=== PATIENT | male | born 1945 | race Caucasian/White ===

== ENCOUNTER 2020-03-18 10:59 | Observation (INO) | payer OTHER ==
[~2020-03-18] VITALS: Ht 182.9 cm; Wt 57.3 kg
[~2020-03-18 10:59] MED LIST: AMLO-150 PO; INSU100I7 SQ; LISI-170 PO; LOVA-39 PO; METF100010 PO; [UNRECOGNIZED DRUG - REMARK]
[2020-03-18] MEDS ORDERED: INSU100V8 SQ (11:50)
[2020-03-18] MEDS ORDERED: SODIUM CHLORIDE 0.9% 1,000ML IVBOLUS ONE (12:30)
[2020-03-18 12:40] LABS: BASOPHILS % (AUTO) 1 % (0-1); EOSINOPHILS % (AUTO) 0 % (1-7); LYMPHOCYTES % (AUTO) 11 % (22-44); MEAN CORPUSCULAR HEMOGLOBIN 31.9 pg (27.5-34.5); MEAN CORPUSCULAR HGB CONC 33.4 g/dL (33.2-36.2); MEAN PLATELET VOLUME 8.7 fL (7.4-10.4); MONOCYTES % (AUTO) 6 % (2-9); NEUTROPHILS % (AUTO) 83 % (42-75); PLATELET COUNT 268 x10^3/uL (130-400); RED BLOOD COUNT 4.53 x10^6/uL (4.38-5.82); RED CELL DISTRIBUTION WIDTH 13.7 % (9.4-14.8)
[2020-03-18 12:42] LABS: MD NO
[2020-03-18 12:45] LABS: ALANINE AMINOTRANSFERASE 21 U/L (12-78); ALBUMIN 3.1 g/dL (3.4-5.0); ANION GAP 9 mmol/L (5-15); CALCIUM 8.7 mg/dL (8.5-10.1); CHLORIDE 99 mmol/L (98-107); CREATININE 0.81 mg/dL (0.7-1.3)
[2020-03-18 12:47] LABS: ALKALINE PHOSPHATASE 125 U/L (45-117); BILIRUBIN,TOTAL 0.7 mg/dL (0.2-1.0); TOTAL PROTEIN 6.5 g/dL (6.4-8.2)
--- NOTE | 2020-03-18 13:11 | NUR ---
PT UNABLE TO LEAVE STOOL SAMPLE AT THIS TIME, DENIES NEED TO HAVE BM SINCE ARRIVING TO ED.
[2020-03-18] MEDS ORDERED: ENALAPRILAT 1.25 MG/ML, 2ML IVPush PRN (15:00)
[2020-03-18] MEDS ORDERED: GLUCAGON 1 MG IM PRN (15:00)
[2020-03-18] MEDS ORDERED: ACETAMINOPHEN 325 MG TABLET PO PRN (15:00)
[2020-03-18] MEDS ORDERED: MELATONIN 5 MG TABLET PO PRN (15:00)
[2020-03-18] MEDS: LACTATED RINGERS 1,000 ML IV SCH (15:00)
[2020-03-18] MEDS ORDERED: DEXTROSE 50%, 50ML SYRINGE IVPush PRN (15:00)
[2020-03-18] MEDS ORDERED: POLYETHYLENE GLYCOL 17 GM PACKET PO PRN (15:00)
[2020-03-18] MEDS ORDERED: IBUPROFEN 600 MG TABLET PO PRN (15:00)
[2020-03-18] MEDS ORDERED: DEXTROSE 4 GM TAB.CHEW PO PRN (15:00)
--- NOTE | 2020-03-18 15:17 | NUR ---
SON PEACE PAGE [phone]. FAMILY FRIEND CONTACT FOR GENARO KWAN [phone].
--- NOTE | 2020-03-18 15:18 | NUR ---
REPORT TO BLANKA IBANEZ.
[2020-03-18] MEDS ORDERED: HEPARIN 5,000 UNITS/ML, 1ML ONE (15:40)
[2020-03-18] MEDS: HEPARIN 5,000 UNITS/ML, 1ML SQ SCH ×2 (15:42→23:32)
--- NOTE | 2020-03-18 15:43 | NUR ---
report called to marina ocampo. pt aware of transfer
[2020-03-18] MEDS: INSULIN LISPRO 100 UNITS/ML, PEN SQ-INSULIN SCH ×2 (18:10→22:19)
[2020-03-18 19:17] VITALS: BP 124/80
[2020-03-18] MEDS ORDERED: INSULIN GLARGINE 100 UNITS/ML, PEN SQ-INSULIN SCH (21:00)
[2020-03-18] MEDS ORDERED: LOVASTATIN 20 MG TABLET PO SCH (21:00)
[2020-03-18] MEDS: SODIUM CHLORIDE FLUSH 10ML SYR IVF SCH (21:00)
[2020-03-18] MEDS: metFORMIN XR 500 MG TAB.ER.24H PO SCH (22:19)
[2020-03-19 02:07] VITALS: BP 121/72
[2020-03-19] MEDS ORDERED: ASPIRIN 81 MG TABLET EC PO SCH (06:00)
[2020-03-19 06:53] LABS: BASOPHILS % (AUTO) 1 % (0-1); EOSINOPHILS % (AUTO) 2 % (1-7); LYMPHOCYTES % (AUTO) 25 % (22-44); MEAN CORPUSCULAR HEMOGLOBIN 31.5 pg (27.5-34.5); MEAN CORPUSCULAR HGB CONC 33.3 g/dL (33.2-36.2); MEAN PLATELET VOLUME 8.4 fL (7.4-10.4); MONOCYTES % (AUTO) 9 % (2-9); NEUTROPHILS % (AUTO) 64 % (42-75); PLATELET COUNT 280 x10^3/uL (130-400); RED BLOOD COUNT 4.51 x10^6/uL (4.38-5.82); RED CELL DISTRIBUTION WIDTH 13.6 % (9.4-14.8)
[2020-03-19 06:58] LABS: MD NO
[2020-03-19 07:00] LABS: ANION GAP 6 mmol/L (5-15); CALCIUM 8.2 mg/dL (8.5-10.1); CHLORIDE 105 mmol/L (98-107); CREATININE 0.44 mg/dL (0.7-1.3)
[2020-03-19 07:21] VITALS: BP 121/70
[2020-03-19] MEDS: metFORMIN XR 500 MG TAB.ER.24H PO SCH (08:21)
[2020-03-19] MEDS: HEPARIN 5,000 UNITS/ML, 1ML SQ SCH ×2 (08:22→15:30)
[2020-03-19] MEDS: INSULIN LISPRO 100 UNITS/ML, PEN SQ-INSULIN SCH ×3 (08:22→17:18)
[2020-03-19] MEDS: SODIUM CHLORIDE FLUSH 10ML SYR IVF SCH (09:00)
[2020-03-19] MEDS: LACTATED RINGERS 1,000 ML IV SCH (10:41)
[2020-03-19 12:25] VITALS: BP 110/69
== END 2020-03-19 18:46 | disposition home or self-care (01) ==
LOC: ED 13:40 → INTOOBSV 14:32 → EDIP 14:32 → 3N 16:15
PROVIDERS: ADMIT Family Medicine; ATTEND Family Medicine
DX: E86.0 Dehydration (principal); E11.65 Type 2 diabetes mellitus with hyperglycemia; I63.9 Cerebral infarction, unspecified; R19.7 Diarrhea, unspecified; R62.7 Adult failure to thrive; R53.81 Other malaise; I10 Essential (primary) hypertension; E78.5 Hyperlipidemia, unspecified; Z79.4 Long term (current) use of insulin; Z79.899 Other long term (current) drug therapy; Z87.891 Personal history of nicotine dependence; Z96.642 Presence of left artificial hip joint; Z86.73 Personal history of transient ischemic attack (TIA), and cerebral infarction without residual deficits
CPT/HCPCS: 36415; 80048; 80053; 82962; 85025; 96360; 96361; 96372; 97162; 97166; 99285; G0378; J1644; J1815; J7030; J7120